=== PATIENT | female | born 1975 | race Caucasian/White ===

== ENCOUNTER 2024-04-04 18:33 | Emergency (ER) | payer BC ==
[~2024-04-04] VITALS: Ht 162.6 cm; Wt 56.7 kg
[2024-04-04 19:21] LABS: BASOPHILS # (AUTO) 0.1 K/UL (0.0-0.2); BASOPHILS % (AUTO) 1.4 % (0.0-2.0); EOSINOPHILS # (AUTO) 0.2 K/uL (0.0-0.7); EOSINOPHILS % (AUTO) 2.7 % (0.0-7.0); HEMATOCRIT 38.1 % (31.2-41.9); HEMOGLOBIN 12.3 g/dL (10.9-14.3); LYMPHOCYTES # (AUTO) 1.7 K/uL (0.8-4.8); LYMPHOCYTES % (AUTO) 24.6 % (20.5-51.5); MEAN CORPUSCULAR HEMOGLOBIN 30.8 uug (24.7-32.8); MEAN CORPUSCULAR HGB CONC 32 g/dL (32.3-35.6); MEAN CORPUSCULAR VOLUME 95.1 fL (75.5-95.3); MONOCYTES # (AUTO) 0.6 K/uL (0.1-1.30); MONOCYTES % (AUTO) 8.9 % (0.0-11.0); NEUTROPHILS # (AUTO) 4.3 K/uL (1.8-8.9); NEUTROPHILS % (AUTO) 62.4 % (38.5-71.5); PLATELET COUNT (AUTO) 325 K/uL (179-408); RED BLOOD CELL COUNT(AUTO) 4.01 MIL/uL (3.63-4.92); RED CELL DISTRIBUTION WIDTH 14.9 % (12.3-17.7); WHITE BLOOD COUNT (AUTO) 6.9 K/uL (3.8-11.8)
[2024-04-04 19:22] LABS: DIFFERENTIAL COMMENT 1
[2024-04-04] MEDS ORDERED: BUPR300T52 PO (19:23)
[2024-04-04] MEDS ORDERED: ATOR10TA PO (19:23)
[2024-04-04] MEDS ORDERED: DICL1KIT14 TOP (19:23)
[2024-04-04] MEDS ORDERED: FERR325T24 PO (19:24)
[2024-04-04] MEDS ORDERED: GABA600T12 PO (19:24)
[2024-04-04] MEDS ORDERED: LISI10TA29 PO (19:24)
[2024-04-04] MEDS ORDERED: PANT40TA49 PO (19:25)
[2024-04-04] MEDS ORDERED: BUDE10.22 PO (19:25)
[2024-04-04] MEDS ORDERED: METO-356 PO (19:25)
[2024-04-04] MEDS ORDERED: TOPI25CA5 PO (19:26)
[2024-04-04] MEDS ORDERED: TRAZ-182 PO (19:26)
[2024-04-04 19:27] LABS: CALCIUM 8.6 mg/dL (8.5-10.1); CARBON DIOXIDE 22 mmol/L (21-32); CHLORIDE 109 mmol/L (98-107); CREATININE 1.1 mg/dL (0.6-1.3); GLUCOSE 76 mg/dL (74-106); POTASSIUM 4.1 mmol/L (3.5-5.1); SODIUM SERUM 141 mmol/L (136-145); UREA NITROGEN, BLOOD 16 mg/dL (7-18)
[2024-04-04 19:40] LABS: ALANINE AMINOTRANSFERASE 30 U/L (14-59); ALBUMIN 3.3 g/dL (3.4-5.0); ALKALINE PHOSPHATASE 45 U/L (50-136); ASPARTATE AMINOTRANSFERASE 16 U/L (15-37); BILIRUBIN,DIRECT 0.1 mg/dL (0.0-0.2); BILIRUBIN,TOTAL 0.3 mg/dL (0.2-1.0); NT-PRO BNP 163 pg/mL (0-125); TOTAL PROTEIN, SERUM 6.8 g/dL (6.4-8.2)
[2024-04-04 22:02] VITALS: BP 108/72; TEMP 98; O2SAT 98
== END 2024-04-04 22:03 | disposition home or self-care (01) ==
LOC: ER 18:38
DX: R55 Syncope and collapse (principal); Z79.899 Other long term (current) drug therapy
CPT/HCPCS: 36415; 71045; 84484; 85025; 93005; A4606; A4663